=== PATIENT | male | born 1995 | race Caucasian/White ===

== ENCOUNTER 2017-04-16 01:28 | Emergency (ER) | payer OTHER ==
[2017-04-16 02:04] VITALS: BP 136/67; PULSE 75; TEMP 98.1; BMI 19.5
[2017-04-16] MEDS ORDERED: CEFAZOLIN 2 GM in DEXTROSE 5%-WATER - 50 ML IVPB ONE (02:12)
[2017-04-16] MEDS ORDERED: TETANUS AND DIPHTHERIA TOXOID 0.5 ML DISP.SYRIN IM ONE (02:16)
[2017-04-16] MEDS ORDERED: IBUPROFEN 600 MG TABLET (FP) PO ONE ×2 (02:16→02:20)
--- NOTE | 2017-04-16 02:19 | PDOC ---
History of Present Illness - General Chief Complaint: Bite Stated Complaint: DOG BITE Time Seen by Provider: 04/16/17 02:03 History Source: Patient - History of Present Illness Initial Comments: 04/16/17 02:14 21 YEAR OLD male s/p dog bite to right hand and right upper area of calf, multiple puncture wounds to to right calf and right hand. tetanus not up to date. known dog. as per patient vaccines of dog up to date. Past History - Travel Traveled outside of the country in the last 30 days: No Close contact w/someone who was outside of country & ill: No - Past Medical History Allergies/Adverse Reactions: Allergies Allergy/AdvReac Type Severity Reaction Status Date / Time No Known Allergies Allergy Verified 04/16/17 02:02 Home Medications: Ambulatory Orders Amox-Tr/K Cl [Augmentin - 875Mg Tablet] 1 tab PO BID #20 tablet 04/16/17 Anemia: No Asthma: No Cancer: No Cardiac Disorders: No CVA: No COPD: No CHF: No Dementia: No Diabetes: No GI Disorders: No Disorders: No HTN: No Hypercholesterolemia: No Kidney Stones: No Liver Disease: No Suicide Attempt (Hx): No Seizures: No Thyroid Disease: No - Surgical History Abdominal Surgery: No Appendectomy: No Cardiac Surgery: No Cholecystectomy: No Lung Surgery: No Neurologic Surgery: No Orthopedic Surgery: No - Reproductive History Testicular Surgery: No - Immunization History TDAP Vaccination: Yes Immunization Up to Date: Yes - Psycho/Social/Smoking Cessation Hx Anxiety: No Suicidal Ideation: No Smoking Status: No Smoking History: Never smoked Have you smoked in the past 12 months: No Number of Cigarettes Smoked Daily: 1 Information on smoking cessation initiated: No 'Breaking Loose' booklet given: 01/03/16 Hx Alcohol Use: No Drug/Substance Use Hx: No Substance Use Type: Marijuana Hx Substance Use Treatment: Yes (outpatient tx [facility], not completed) Review of Systems - Review of Systems Able to Perform ROS?: Yes Is the patient limited Icelandic proficient: No Integumentary: Yes: Other (bite) *Physical Exam - Vital Signs Last Vital Signs Temp Pulse Resp BP Pulse Ox 98.1 F 75 14 136/67 100 04/16/17 02:02 04/16/17 02:02 04/16/17 02:02 04/16/17 02:02 07/26/17 02:02 - Physical Exam General Appearance: Yes: Appropriately Dressed Respiratory/Chest: positive: Lungs Clear, Normal Breath Sounds Cardiovascular: positive: Regular Rhythm, Regular Rate Progress Note - Progress Note Progress Note: A: dog bite P: dog vaccines utd. known dog wound cleaned andirrigated. augmentin. return to the ED in two days wound check *DC/Admit/Observation/Transfer Diagnosis at time of Disposition: Dog bite Qualifiers: Encounter type: initial encounter Qualified Code(s): W54.0XXA - Bitten by dog, initial encounter - Discharge Dispostion Disposition: HOME - Prescriptions Prescriptions: Amox-Tr/K Cl [Augmentin - 875Mg Tablet] 1 tab PO BID #20 tablet - Referrals Referrals: Gregg Doyle MD [Staff Physician] - - Patient Instructions Printed Discharge Instructions: How to Care for a Domestic Animal Bite Additional Instructions: keep wound clean and dry. take augmentin as prescribed. please return in days to ER for a wound check
--- NOTE | 2017-04-16 02:51 | PDOC ---
*Physical Exam - Vital Signs Last Vital Signs Temp Pulse Resp BP Pulse Ox 98.1 F 75 14 136/67 100 04/16/17 02:02 04/16/17 02:02 04/16/17 02:02 04/16/17 02:02 04/16/17 02:02 ED Treatment Course - Medications Given in the ED: ED Medications Discontinued Medications Generic Name Dose Route Start Last Admin Trade Name Brianna PRN Reason Stop Dose Admin Cefazolin Sodium 2 gm/ 50 mls @ 100 mls/hr 04/16/17 02:12 04/16/17 02:46 Dextrose IVPB 04/16/17 02:41 100 mls/hr ONCE ONE Administration Ibuprofen 600 mg 04/16/17 02:16 04/16/17 02:30 Motrin - PO 04/16/17 02:17 600 mg ONCE ONE Administration Tetanus/Diphtheria Toxoids Adsorbed 0.5 ml 04/16/17 02:16 04/16/17 02:29 Decavac - IM 04/16/17 02:17 0.5 ml .ONCE ONE Administration Medical Decision Making - Medical Decision Making 04/16/17 02:50 agree with care from MAYLIN Crowley. Pt s/p bitten by friend's dog. States dog is vaccinated. Pt denies fever. Rx Abx. Pt to follow up for wound check in two days. *DC/Admit/Observation/Transfer Diagnosis at time of Disposition: Dog bite - Discharge Dispostion Disposition: HOME - Prescriptions Prescriptions: Amox-Tr/K Cl [Augmentin - 875Mg Tablet] 1 tab PO BID #20 tablet - Referrals Referrals: Gregg Doyle MD [Staff Physician] - - Patient Instructions Printed Discharge Instructions: How to Care for a Domestic Animal Bite Additional Instructions: keep wound clean and dry. take augmentin as prescribed. please return in days to ER for a wound check - Post Discharge Activity
== END 2017-04-16 02:57 | disposition home or self-care (01) ==
LOC: JER 01:28
PROC: 3E0234Z Introduction of Serum, Toxoid and Vaccine into Muscle, Percutaneous Approach (ICD-10-PCS; principal; 2017-04-16)
PROC: 3E03329 Introduction of Other Anti-infective into Peripheral Vein, Percutaneous Approach (ICD-10-PCS; 2017-04-16)
DX: S61.451A Open bite of right hand, initial encounter (principal); S81.851A Open bite, right lower leg, initial encounter; W54.0XXA Bitten by dog, initial encounter; Y93.89 Activity, other specified; Y92.9 Unspecified place or not applicable
CPT/HCPCS: 90471; 90715; 96365; 99282-25

== ENCOUNTER 2018-04-04 12:36 | Emergency (ER) | payer OTHER ==
[2018-04-04 12:42] VITALS: BP 128/69; PULSE 53; TEMP 97.5; BMI 18.9
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
== END 2018-04-04 13:23 | disposition home or self-care (01) ==
LOC: JERFT 12:36
DX: S30.872A Other superficial bite of penis, initial encounter (principal); W50.3XXA Accidental bite by another person, initial encounter; Y93.89 Activity, other specified; Y92.89 Other specified places as the place of occurrence of the external cause; Y99.8 Other external cause status
CPT/HCPCS: 99281-25

== ENCOUNTER 2018-08-01 21:57 | Emergency (ER) | payer OTHER ==
[2018-08-01 22:04] VITALS: BP 121/65; PULSE 74; TEMP 98.3; BMI 18.8
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
[2018-08-01] MEDS ORDERED: IBUPROFEN 600 MG TABLET (FP) PO ONE ×2 (22:41→22:43)
== END 2018-08-01 22:45 | disposition home or self-care (01) ==
LOC: JERFT 21:57
DX: S20.211A Contusion of right front wall of thorax, initial encounter (principal); W50.1XXA Accidental kick by another person, initial encounter; Y93.89 Activity, other specified; Y92.89 Other specified places as the place of occurrence of the external cause; Y99.8 Other external cause status
CPT/HCPCS: 71101-TC-RT-FY; 99281-25

== ENCOUNTER 2019-11-12 11:42 | Emergency (ER) | payer OTHER ==
[2019-11-12 11:54] VITALS: BP 128/60; PULSE 61; TEMP 98.2; BMI 19.5
[2019-11-12] MEDS ORDERED: SODIUM CHLORIDE 1,000 ML IV STA (12:11)
[2019-11-12] MEDS ORDERED: ONDANSETRON 4 MG/2 ML VIAL IVPUSH ONE (12:12)
[2019-11-12] MEDS ORDERED: FAMOTIDINE 20 MG/50 ML IVPB 20 MG in PREMIX 50 IVPB ONE (12:12)
[2019-11-12] MEDS ORDERED: FAMOTIDINE 20 MG/50 ML IVPB 20 MG/50 ML MG IVPB ONE (12:36)
[2019-11-12] MEDS ORDERED: ONDANSETRON 4 MG/2 ML VIAL ONE (12:36)
[2019-11-12 12:37] LABS: BASO % 0.4 % (0-2.0); EOS % 0.9 % (0-4.5); HEMATOCRIT 48.9 % (35.4-49); HEMOGLOBIN 16.7 GM/dL (11.7-16.9); LYMPH % 20.4 % (8-40); MCH 29.7 pg (25.7-33.7); MCHC 34.2 g/dl (32.0-35.9); MEAN CELL VOLUME 86.8 fl (80-96); MEAN PLT VOLUME 8.6 fl (7.5-11.1); MONO % 10.2 % (3.8-10.2); NEUT % 68.1 % (42.8-82.8); PLATELET COUNT 201 K/MM3 (134-434); RBC 5.64 M/mm3 (4.00-5.60); RDW 13.3 % (11.9-15.9); WHITE BLOOD COUNT 5.4 K/mm3 (4.0-10.0)
[2019-11-12 12:46] LABS: URINE APPEARANCE CLEAR; URINE BILIRUBIN NEGATIVE (NEGATIVE); URINE COLOR YELLOW; URINE GLUCOSE (UA) NEGATIVE (NEGATIVE); URINE KETONE NEGATIVE (NEGATIVE); URINE LEUK ESTERASE NEGATIVE (NEGATIVE); URINE NITRITE NEGATIVE (NEGATIVE); URINE PROTEIN TRACE (NEGATIVE); URINE UROBILINOGEN 0.2 mg/dL (0.2-1.0)
[2019-11-12 13:04] LABS: ALBUMIN 4.1 g/dl (3.4-5.0); BILIRUBIN,TOTAL 0.5 mg/dL (0.2-1); BLOOD UREA NITROGEN 18.2 mg/dL (7-18); CALCIUM 9.7 mg/dL (8.5-10.1); CREATININE 0.9 mg/dL (0.55-1.3); POTASSIUM 4.1 mmol/L (3.5-5.1); TOT PROT 7.1 g/dl (6.4-8.2)
--- NOTE | 2019-11-12 14:59 | PDOC ---
History of Present Illness - General Chief Complaint: Pain Stated Complaint: ABD. PAIN Time Seen by Provider: 11/12/19 12:05 History Source: Patient Exam Limitations: No Limitations - History of Present Illness Initial Comments: 11/12/19 15:00 CHIEF COMPLAINT: Vomiting HISTORY OF PRESENT ILLNESS: This is an otherwise healthy 24-year-old male who presents for evaluation of 1 week of abdominal pain and nausea/vomiting. He denies fever/chills. He reports that he has been able to keep down fluids. He denies travel and sick contacts. Vital signs on arrival are unremarkable. REVIEW OF SYSTEMS: GENERAL/CONSTITUTIONAL: No fever or chills. No weakness. No weight change. HEAD, EYES, EARS, NOSE AND THROAT: No change in vision. No ear pain or discharge. No sore throat. CARDIOVASCULAR: No chest pain or palpitations. RESPIRATORY: No cough, wheezing, or shortness of breath. GASTROINTESTINAL: See HPI. GENITOURINARY: No dysuria, frequency, or change in urination. MUSCULOSKELETAL: No joint or muscle swelling or pain. No neck or back pain. SKIN: No rash or easy bruising. NEUROLOGIC: No headache, vertigo, loss of consciousness, or loss of sensation. PSYCHIATRIC: No depression or anxiety. ENDOCRINE: No increased thirst. No abnormal weight change. HEMATOLOGIC/LYMPHATIC: No anemia, easy bleeding, or history of blood clots. ALLERGIC/IMMUNOLOGIC: No hives or skin allergy. No latex allergy. PHYSICAL EXAM: GENERAL: The patient is awake, alert, and fully oriented, in no acute distress. HEAD: Normal with no signs of trauma. ENT: Pupils equal, round and reactive to light, extraocular movements intact, sclera anicteric, conjunctiva clear. Neck supple. LUNGS: Clear to auscultation bilaterally. Normal excursion. No respiratory distress or use of accessory muscles. CV: RRR, S1/S2, no MRG. Cap refill < 2 sec. ABDOMEN: Soft, non-distended, no focal tenderness even to deep palpation. EXTREMITIES: Normal range of motion, no edema. NEUROLOGICAL: Normal speech, normal gait. CN II-XII grossly intact. PSYCH: Normal mood, normal affect. SKIN: Warm, dry, normal turgor, no rashes or lesions noted. Past History - Past Medical History Allergies/Adverse Reactions: Allergies Allergy/AdvReac Type Severity Reaction Status Date / Time No Known Allergies Allergy Verified 11/12/19 11:52 Home Medications: Ambulatory Orders Ondansetron [Zofran *Odt*] 4 mg SL TID PRN #21 od.tablet 11/12/19 Anemia: No Asthma: No Cancer: No Cardiac Disorders: No CVA: No COPD: No CHF: No Dementia: No Diabetes: No GI Disorders: No Disorders: No HTN: No Hypercholesterolemia: No Kidney Stones: No Liver Disease: No Seizures: No Thyroid Disease: No - Surgical History Abdominal Surgery: No Appendectomy: No Cardiac Surgery: No Cholecystectomy: No Lung Surgery: No Neurologic Surgery: No Orthopedic Surgery: No - Reproductive History Testicular Surgery: No - Immunization History TDAP Vaccination: Yes Immunization Up to Date: Yes - Psycho Social/Smoking Cessation Hx Smoking Status: No Smoking History: Never smoked Have you smoked in the past 12 months: No Number of Cigarettes Smoked Daily: 1 Information on smoking cessation initiated: No 'Breaking Loose' booklet given: 01/03/16 Hx Alcohol Use: No Drug/Substance Use Hx: No Substance Use Type: Marijuana Hx Substance Use Treatment: Yes (outpatient tx [facility], not completed) *Physical Exam - Vital Signs Last Vital Signs Temp Pulse Resp BP Pulse Ox 98.2 F 61 18 128/60 97 11/12/19 11:52 11/12/19 11:52 11/12/19 11:52 11/12/19 11:52 11/12/19 11:52 ED Treatment Course - LABORATORY CBC & Chemistry Diagram: 11/12/19 12:10 11/12/19 12:10 - ADDITIONAL ORDERS Additional order review: Laboratory Results 11/12/19 11/12/19 11/12/19 12:30 12:10 12:10 Sodium 143 Potassium 4.1 Chloride 109 H Carbon Dioxide 30 Anion Gap 3 L BUN 18.2 H Creatinine 0.9 Est GFR (CKD-EPI)AfAm 139.04 Est GFR (CKD-EPI)NonAf 119.96 Random Glucose 80 Calcium 9.7 Total Bilirubin 0.5 AST 8 L ALT 20 Alkaline Phosphatase 79 Total Protein 7.1 Albumin 4.1 Lipase 125 Urine Color Yellow Urine Appearance Clear Urine pH 5.0 D Ur Specific Gardner 1.025 Urine Protein Trace Urine Glucose (UA) Negative Urine Ketones Negative Urine Blood Negative Urine Nitrite Negative Urine Bilirubin Negative Urine Urobilinogen 0.2 Ur Leukocyte Esterase Negative 11/12/19 12:10 RBC 5.64 H MCV 86.8 MCHC 34.2 RDW 13.3 MPV 8.6 Neutrophils % 68.1 D Lymphocytes % 20.4 D Monocytes % 10.2 Eosinophils % 0.9 Basophils % 0.4 - Medications Given in the ED: ED Medications Discontinued Medications Generic Name Dose Route Start Last Admin Trade Name Joseq PRN Reason Stop Dose Admin Famotidine/Sodium Chloride 20 50 mls @ 100 mls/hr 11/12/19 12:12 11/12/19 12: 53 mg/ Miscellaneous IVPB 11/12/19 12:41 100 mls/hr ONCE ONE Administration Sodium Chloride 1,000 mls @ 1,000 mls/hr 11/12/19 12:11 11/12/19 12:35 Normal Saline - IV 11/12/19 13:10 1,000 mls/hr ASDIR STA Administration Ondansetron HCl 4 mg 11/12/19 12:12 11/12/19 12:40 Zofran Injection IVPUSH 11/12/19 12:13 4 mg ONCE ONE Administration Medical Decision Making - Medical Decision Making 11/12/19 11/12/19 15:03 A/P: Healthy 24-year-old male with 1 week of abdominal pain, nausea/vomiting/ diarrhea. Resolving without intervention per patient. Labs including CBC, CMP, UA unremarkable 1 L normal saline given for hydration 4 mg Zofran IV push given for nausea 20 mg Pepcid given IV push piggyback for epigastric pain Patient reevaluated and feeling much better. Repeat abdominal exam: Soft and nontender. Tolerating PO. Will discharge with supportive care including dietary instructions. Patient to follow-up with Dr. Goel. Follow-up instructions and return precautions reviewed. Discharge - Discharge Information Problems reviewed: Yes Clinical Impression/Diagnosis: Nausea & vomiting Condition: Improved Disposition: HOME - Additional Discharge Information Prescriptions: Ondansetron [Zofran *Odt*] 4 mg SL TID PRN #21 od.tablet PRN Reason: Nausea - Follow up/Referral Referrals: Tee Goel [Primary Care Provider] - 1 week - Patient Discharge Instructions Patient Printed Discharge Instructions: [place] Diet, DI for Vomiting -- Adult Additional Instructions: Rest and stay well-hydrated Take Zofran as prescribed if needed for nausea Eat a bland diet (instructions and close) Follow-up with Dr. Goel next week Return here for any new or concerning symptoms, including worsening abdominal pain, or vomiting/inability to keep down fluids - Post Discharge Activity Work/Back to School Note: Back to Work
== END 2019-11-12 15:33 | disposition home or self-care (01) ==
LOC: JER 11:42
PROC: 3E033GC Introduction of Other Therapeutic Substance into Peripheral Vein, Percutaneous Approach (ICD-10-PCS; principal; 2019-11-12)
PROC: 3E033GC Introduction of Other Therapeutic Substance into Peripheral Vein, Percutaneous Approach (ICD-10-PCS; 2019-11-12)
DX: R11.2 Nausea with vomiting, unspecified (principal)
CPT/HCPCS: 36415; 80053; 81003; 83690; 85025; 96365; 96375; 99284-25; J7030

== ENCOUNTER 2020-04-10 14:00 | Emergency (ER) | payer OTHER ==
[2020-04-10 14:10] VITALS: TEMP 98.7; BMI 20.9
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
[2020-04-10] MEDS ORDERED: SODIUM CHLORIDE 0.9% 500 ML INFUS.BAG IV ONE ×2 (14:12→16:28)
[2020-04-10] MEDS ORDERED: ACETAMINOPHEN 500 MG TABLET (FP) PO ONE (14:12)
[2020-04-10] MEDS ORDERED: ACETAMINOPHEN INJECTION 100 ML IVPB ONE (14:20)
[2020-04-10] MEDS ORDERED: ACETAMINOPHEN 500 MG TABLET (FP) ONE (14:41)
[2020-04-10 14:50] LABS: BASO % 0.6 % (0-2.0); EOS % 0.7 % (0-4.5); HEMATOCRIT 51.8 % (35.4-49); HEMOGLOBIN 17.3 GM/dL (11.7-16.9); LYMPH % 18.6 % (8-40); MCH 29.1 pg (25.7-33.7); MCHC 33.4 g/dl (32.0-35.9); MEAN CELL VOLUME 87.3 fl (80-96); MEAN PLT VOLUME 8.6 fl (7.5-11.1); MONO % 9.6 % (3.8-10.2); NEUT % 70.5 % (42.8-82.8); PLATELET COUNT 195 K/MM3 (134-434); RBC 5.94 M/mm3 (4.00-5.60); RDW 13.5 % (11.9-15.9); WHITE BLOOD COUNT 5.5 K/mm3 (4.0-10.0)
[2020-04-10 15:22] LABS: ALBUMIN 4.3 g/dl (3.4-5.0); BILIRUBIN,TOTAL 0.6 mg/dL (0.2-1); BLOOD UREA NITROGEN 13.1 mg/dL (7-18); POTASSIUM 4.4 mmol/L (3.5-5.1); TOT PROT 7.6 g/dl (6.4-8.2)
[2020-04-10] MEDS ORDERED: METOCLOPRAMIDE HCL INJECTION 10 MG/2 ML VIAL IVPUSH ONE (16:28)
[2020-04-10] MEDS ORDERED: KETOROLAC TROMETHAMINE 30 MG/1 ML VIAL IVPUSH ONE (16:28)
[2020-04-10] MEDS ORDERED: KETOROLAC TROMETHAMINE 30 MG/1 ML VIAL ONE (16:45)
[2020-04-10] MEDS ORDERED: METOCLOPRAMIDE HCL INJECTION 10 MG/2 ML VIAL ONE (16:45)
--- NOTE | 2020-04-10 17:07 | PDOC ---
History of Present Illness - General Chief Complaint: Headache Stated Complaint: HEADACHE Time Seen by Provider: 04/10/20 14:18 - History of Present Illness Initial Comments: 04/10/20 17:06 24-year-old male without comorbidities presents for evaluation of 2 weeks of headache without systemic symptoms. Past History - Medical History Allergies/Adverse Reactions: Allergies Allergy/AdvReac Type Severity Reaction Status Date / Time No Known Allergies Allergy Verified 04/10/20 14:09 Home Medications: Ambulatory Orders Ondansetron [Zofran *Odt*] 4 mg SL TID PRN #21 od.tablet 11/12/19 Anemia: No Asthma: No Cancer: No Cardiac Disorders: No CVA: No COPD: No CHF: No Dementia: No Diabetes: No GI Disorders: No Disorders: No HTN: No Hypercholesterolemia: No Kidney Stones: No Liver Disease: No Seizures: No Thyroid Disease: No - Surgical History Abdominal Surgery: No Appendectomy: No Cardiac Surgery: No Cholecystectomy: No Lung Surgery: No Neurologic Surgery: No Orthopedic Surgery: No - Reproductive History Testicular Surgery: No - Immunization History TDAP Vaccination: Yes Immunization Up to Date: Yes - Psycho-Social/Smoking History Smoking Status: No Smoking History: Never smoked Have you smoked in the past 12 months: No Number of Cigarettes Smoked Daily: 1 Information on smoking cessation initiated: No 'Breaking Loose' booklet given: 01/03/16 - Substance Abuse Hx (Audit-C & DAST Scrn) How often the patient has a drink containing alcohol: Never Score: In Men: 4 or > Positive; In Women: 3 or > Positive: 0 Screen Result (Pos requires Nsg. Audit-10AR): Negative In the last yr the pt used illegal drug/Rx for NonMed reason: No Score: Yes response is considered Positive: 0 Screen Result (Positive result requires Nsg. DAST-10): Negative Review of Systems - Review of Systems Constitutional: No: Chills, Fever, Night Sweats ABD/GI: No: Nausea, Vomiting Neurological: Yes: Headache. No: Numbness, Paresthesia, Weakness, Dizziness *Physical Exam - Vital Signs Last Vital Signs Temp Pulse Resp BP Pulse Ox 98.7 F 78 17 123/73 98 04/10/20 14:03 04/10/20 14:03 04/10/20 14:03 04/10/20 14:03 04/10/20 14:03 - Physical Exam 04/10/20 17:06 GENERAL: The patient is awake, alert, and fully oriented, in no acute distress. HEAD: Normal with no signs of trauma. EYES: sclera anicteric, conjunctiva clear. ENT: Ears normal tympanic membranes normal oropharynx clear uvula midline NECK: Normal range of motion LUNGS: Breath sounds equal, clear to auscultation bilaterally. No wheezes, and no crackles. HEART: S1 and S2 without murmur, rub or gallop. ABDOMEN: Soft, nontender, normoactive bowel sounds. No guarding, no rebound. No masses. EXTREMITIES: Normal range of motion, no edema. No clubbing or cyanosis. No cords, erythema, or tenderness. NEUROLOGICAL: Cranial nerves II through XII grossly intact. PSYCH: Normal mood, normal affect. SKIN: Warm, Dry, normal turgor, no rashes or lesions noted. ED Treatment Course - LABORATORY CBC & Chemistry Diagram: 04/10/20 14:35 04/10/20 14:35 - ADDITIONAL ORDERS Additional order review: Laboratory Results 04/10/20 14:35 Sodium 141 Potassium 4.4 Chloride 105 Carbon Dioxide 29 Anion Gap 7 L BUN 13.1 Creatinine 1.0 Est GFR (CKD-EPI)AfAm 122.41 Est GFR (CKD-EPI)NonAf 105.62 Random Glucose 88 Calcium 10.0 Total Bilirubin 0.6 AST 17 ALT 28 Alkaline Phosphatase 71 Total Protein 7.6 Albumin 4.3 04/10/20 14:35 RBC 5.94 H MCV 87.3 MCHC 33.4 RDW 13.5 MPV 8.6 Neutrophils % 70.5 Lymphocytes % 18.6 Monocytes % 9.6 Eosinophils % 0.7 Basophils % 0.6 - RADIOLOGY Radiology Studies Ordered: Category Date Time Status HEAD CT WITHOUT CONTRAST [CT] Stat CT Scan 04/10/20 14:19 Completed - Medications Given in the ED: ED Medications Discontinued Medications Generic Name Dose Route Start Last Admin Trade Name Freq PRN Reason Stop Dose Admin Acetaminophen 1,000 mg 04/10/20 14:12 04/10/20 14:38 Tylenol - PO 04/10/20 14:13 1,000 mg ONCE ONE Administration Sodium Chloride 1,000 ml 04/10/20 14:12 04/10/20 14:38 Normal Saline - IV 04/10/20 14:13 1,000 ml ONCE ONE Administration Medical Decision Making - Medical Decision Making 04/10/20 17:06 Patient symptoms relieved. Second round of medication canceled. CAT scan normal. Follow-up with neurology. I have reviewed the pathophysiology with the patient. They are in agreement with the treatment plan all questions were answered to their satisfaction. Understanding for follow-up without fail was also conveyed to the patient. Again they are in agreement. Discharge - Discharge Information Problems reviewed: Yes Clinical Impression/Diagnosis: Headache Condition: Stable Disposition: HOME - Admission No - Follow up/Referral Referrals: Timi Au MD [Primary Care Provider] - Donald Jacobs MD [Staff Physician] - - Patient Discharge Instructions Additional Instructions: Tylenol and Motrin for headache as directed. Return to the emergency room for worsening symptoms. Without fail follow-up with neurology in 1 to 2 days for further evaluation and treatment options. - Post Discharge Activity
[2020-04-10 17:14] VITALS: BP 117/81; PULSE 74
== END 2020-04-10 17:13 | disposition home or self-care (01) ==
LOC: JER 14:00
PROC: 3E0333Z Introduction of Anti-inflammatory into Peripheral Vein, Percutaneous Approach (ICD-10-PCS; principal; 2020-04-10)
PROC: 3E033GC Introduction of Other Therapeutic Substance into Peripheral Vein, Percutaneous Approach (ICD-10-PCS; 2020-04-10)
DX: R51 Headache (principal)
CPT/HCPCS: 36415; 70450-TC; 80053; 85025; 96374; 96375; 99284-25

== ENCOUNTER 2021-08-02 08:52 | Emergency (ER) | payer OTHER ==
[2021-08-02 09:15] VITALS: BP 117/60; PULSE 60; TEMP 98.4; BMI 23.2
[2021-08-02] MEDS ORDERED: cefTRIAXone SODIUM 1 GM VIAL ONE (10:05)
== END 2021-08-02 10:54 | disposition home or self-care (01) ==
LOC: JERFT 08:52
DX: S30.812A Abrasion of penis, initial encounter (principal); N34.1 Nonspecific urethritis
CPT/HCPCS: 36415; 87491; 87591; 99284-25

== ENCOUNTER 2021-09-24 17:39 | Emergency (ER) | payer OTHER ==
[2021-09-24 18:12] VITALS: BP 129/68; PULSE 89; TEMP 99.1; BMI 23.0
== END 2021-09-24 19:43 | disposition left against medical advice (07) ==
LOC: JERFT 17:39
DX: R36.9 Urethral discharge, unspecified (principal)
CPT/HCPCS: 99281-25

== ENCOUNTER 2021-09-26 22:25 | Emergency (ER) | payer OTHER ==
[2021-09-26 22:44] VITALS: BP 123/80; PULSE 93; TEMP 98.2; BMI 24.0
[2021-09-27] MEDS ORDERED: AZITHROMYCIN 500 MG TABLET PO ONE (01:41)
== END 2021-09-27 03:09 | disposition home or self-care (01) ==
LOC: JER 22:25
DX: N34.1 Nonspecific urethritis (principal)
CPT/HCPCS: 36415; 87491; 87591; 99284-25

== ENCOUNTER 2021-10-24 06:57 | Emergency (ER) | payer OTHER ==
[2021-10-24 07:09] VITALS: BP 125/74; PULSE 73; TEMP 97.7; BMI 24.3
== END 2021-10-24 08:20 | disposition home or self-care (01) ==
LOC: JER 06:57
DX: Z11.3 Encounter for screening for infections with a predominantly sexual mode of transmission (principal)
CPT/HCPCS: 36415; 87491; 87591; 99283-25

== ENCOUNTER 2021-11-24 12:42 | Emergency (ER) | payer OTHER ==
[2021-11-24 12:51] VITALS: BP 120/72; PULSE 61; TEMP 97.8; BMI 23.7
[2021-11-24 13:53] LABS: PH,URINE 5.5 (5.0-8.0); URINE APPEARANCE CLEAR; URINE BILIRUBIN NEGATIVE (NEGATIVE); URINE COLOR YELLOW; URINE GLUCOSE (UA) NEGATIVE (NEGATIVE); URINE KETONE NEGATIVE (NEGATIVE); URINE LEUK ESTERASE NEGATIVE (NEGATIVE); URINE NITRITE NEGATIVE (NEGATIVE); URINE PROTEIN NEGATIVE (NEGATIVE); URINE UROBILINOGEN 0.2 mg/dL (0.2-1.0)
[2021-11-24 14:42] LABS: SYPHILIS W/ RPR CONF NON-REACTIVE (NONREACTIVE)
[2021-11-24 15:11] LABS: HIV INTERPRETATION NEGATIVE (NEGATIVE)
== END 2021-11-24 14:48 | disposition home or self-care (01) ==
LOC: JER 12:42 → JERFT 12:42
DX: R36.9 Urethral discharge, unspecified (principal)
CPT/HCPCS: 36415; 81003; 86780; 87086; 87389; 87491; 87591; 99283-25

== ENCOUNTER 2022-05-14 09:25 | Emergency (ER) | payer OTHER ==
[2022-05-14 09:30] VITALS: BP 123/64; PULSE 59; RESP 18; TEMP 97.7; BMI 23.3
== END 2022-05-14 10:31 | disposition home or self-care (01) ==
LOC: JERFT 09:25
DX: R36.9 Urethral discharge, unspecified (principal); Z11.3 Encounter for screening for infections with a predominantly sexual mode of transmission
CPT/HCPCS: 99284-25

== ENCOUNTER 2022-08-31 12:06 | Emergency (ER) | payer OTHER ==
[2022-08-31 12:44] VITALS: BP 111/69; PULSE 69; RESP 18; TEMP 98; BMI 24.3
[2022-08-31 16:08] LABS: SYPHILIS W/ RPR CONF NON-REACTIVE (NONREACTIVE)
[2022-08-31 16:36] LABS: HIV INTERPRETATION NEGATIVE (NEGATIVE)
== END 2022-08-31 15:27 | disposition home or self-care (01) ==
LOC: JER 12:06 → JERFT 12:06
DX: B00.9 Herpesviral infection, unspecified (principal)
CPT/HCPCS: 36415; 86780; 86803; 87389; 87491; 87591; 99283-25

== ENCOUNTER 2023-09-02 11:52 | Emergency (ER) | payer OTHER ==
[2023-09-02 12:04] VITALS: BP 111/64; PULSE 66; RESP 16; TEMP 96.5; BMI 22.4
== END 2023-09-02 13:19 | disposition home or self-care (01) ==
LOC: JERFT 11:52
DX: A60.02 Herpesviral infection of other male genital organs (principal)
CPT/HCPCS: 99283-25

== ENCOUNTER 2023-09-23 17:30 | Emergency (ER) | payer OTHER ==
[2023-09-23 17:39] VITALS: BP 113/71; PULSE 72; RESP 20; TEMP 97.6; BMI 27.2
== END 2023-09-23 20:52 | disposition left against medical advice (07) ==
LOC: JERFT 17:30
DX: R21 Rash and other nonspecific skin eruption (principal)
CPT/HCPCS: 99281-25

== ENCOUNTER 2023-09-24 11:14 | Emergency (ER) | payer OTHER ==
[2023-09-24 11:38] VITALS: BP 99/65; PULSE 72; RESP 16; TEMP 98.5; BMI 22.9
== END 2023-09-24 13:14 | disposition home or self-care (01) ==
LOC: JERFT 11:14
DX: R21 Rash and other nonspecific skin eruption (principal); A60.01 Herpesviral infection of penis
CPT/HCPCS: 99283-25

== ENCOUNTER 2023-10-12 15:12 | Emergency (ER) | payer OTHER ==
[2023-10-12 15:23] VITALS: BP 116/57; PULSE 75; RESP 18; TEMP 98.3; BMI 23.3
== END 2023-10-12 16:24 | disposition home or self-care (01) ==
LOC: JER 15:12 → JERFT 15:12
DX: R21 Rash and other nonspecific skin eruption (principal); B00.9 Herpesviral infection, unspecified
CPT/HCPCS: 99283-25

== ENCOUNTER 2024-01-30 12:17 | Emergency (ER) | payer OTHER ==
[2024-01-30 12:27] VITALS: BP 125/83; PULSE 65; RESP 18; TEMP 98.3; BMI 24.7
[2024-01-30] MEDS ORDERED: cefTRIAXone SODIUM 1 GM VIAL ONE (13:33)
[2024-01-30] MEDS ORDERED: LIDOCAINE HCL 1%, 10 MG/ML (20ML VIAL) ONE (13:34)
== END 2024-01-30 14:13 | disposition home or self-care (01) ==
LOC: JERFT 12:17
DX: S83.402A Sprain of unspecified collateral ligament of left knee, initial encounter (principal); Z20.2 Contact with and (suspected) exposure to infections with a predominantly sexual mode of transmission; X50.1XXA Overexertion from prolonged static or awkward postures, initial encounter; Y93.67 Activity, basketball
CPT/HCPCS: 36415; 87491; 87591; 87661; 99284-25

== ENCOUNTER 2024-04-12 11:12 | Emergency (ER) | payer OTHER ==
[2024-04-12 11:16] VITALS: BP 126/82; PULSE 82; RESP 18; TEMP 98.2; BMI 23.6
[2024-04-12] MEDS ORDERED: KETOROLAC TROMETHAMINE 30 MG/1 ML VIAL ONE (12:20)
[2024-04-12] MEDS: KETOROLAC TROMETHAMINE 30 MG/1 ML VIAL IM ONE (12:25)
== END 2024-04-12 14:15 | disposition home or self-care (01) ==
LOC: JERFT 11:12
DX: M25.462 Effusion, left knee (principal); M25.562 Pain in left knee; X50.1XXA Overexertion from prolonged static or awkward postures, initial encounter
CPT/HCPCS: 73564-TC-LT-FY; 99283-25

== ENCOUNTER 2024-05-21 20:52 | Emergency (ER) | payer OTHER ==
[2024-05-21 21:02] VITALS: BP 132/77; PULSE 66; RESP 18; TEMP 99.5; BMI 22.1
[2024-05-21] MEDS ORDERED: IBUPROFEN 600 MG TABLET (FP) PO ONE (21:55)
[2024-05-21] MEDS: IBUPROFEN 600 MG TABLET (FP) PO ONE (21:56)
[2024-05-21 22:17] LABS: THROAT:GRP A STREP NOT DETECTED (NOTDETECTED)
[2024-05-21] MEDS ORDERED: DEXAMETHASONE SOD PHOSPHATE 10 MG/1 ML VIAL ONE (22:19)
[2024-05-21 22:25] LABS: BASO % 0.3 % (0-2.0); EOS % 0.5 % (0-4.5); HEMOGLOBIN 16.4 GM/dL (11.7-16.9); LYMPH % 12.7 % (8-40); MCHC 34.1 g/dl (32.0-35.9); MEAN CELL VOLUME 84.9 fl (80-96); MEAN PLT VOLUME 8.6 fl (7.5-11.1); MONO % 8.4 % (3.8-10.2); NEUT % 78.1 % (42.8-82.8); PLATELET COUNT 238 10^3/uL (134-434); RBC 5.65 M/mm3 (4.00-5.60); RDW 13.8 % (11.9-15.9); WHITE BLOOD COUNT 12.5 K/mm3 (4.0-10.0)
[2024-05-21] MEDS: DEXAMETHASONE SOD PHOSPHATE 10 MG/1 ML VIAL PO ONE (22:25)
[2024-05-21 23:38] LABS: POTASSIUM 3.6 mmol/L (3.5-5.1)
[2024-05-21 23:40] LABS: CALCIUM 9.1 mg/dL (8.5-10.1)
[2024-05-21 23:46] LABS: BILIRUBIN,TOTAL 0.8 mg/dL (0.2-1)
== END 2024-05-22 00:40 | disposition home or self-care (01) ==
LOC: JER 20:52
DX: J03.90 Acute tonsillitis, unspecified (principal); M25.562 Pain in left knee; Z20.822 Contact with and (suspected) exposure to COVID-19
CPT/HCPCS: 0241U-QW; 36415; 80053; 85025; 86308; 87651; 99283-25; J1100

== ENCOUNTER 2024-06-18 20:41 | Emergency (ER) | payer OTHER ==
[2024-06-18 20:47] VITALS: BP 118/68; PULSE 78; RESP 18; TEMP 98.2; BMI 22.9
[2024-06-18 23:06] LABS: SYPHILIS W/ RPR CONF NON-REACTIVE (NONREACTIVE)
[2024-06-18 23:34] LABS: HIV INTERPRETATION NEGATIVE (NEGATIVE)
== END 2024-06-18 22:31 | disposition home or self-care (01) ==
LOC: JERFT 20:41
DX: Z11.3 Encounter for screening for infections with a predominantly sexual mode of transmission (principal)
CPT/HCPCS: 36415; 86780; 87389; 87491; 87591; 87661; 99283-25